=== PATIENT | female | born 1990 | race Caucasian/White ===

== ENCOUNTER 2020-04-08 17:14 | Emergency (ER) | payer OTHER, SELFPAY ==
[2020-04-08 17:41] VITALS: BP 139/74; PULSE 99; RESP 16; TEMP 37.1; O2SAT 100; BMI 36.3
[2020-04-08 18:09] LABS: Glucose Urine UA NEG (NEG); Leukocyte Esterase Urine NEG (NEG); Nitrite Urine NEG (NEG); Urine Blood NEG (NEG); Urine Ketones NEG (NEG); Urine Protein NEG (NEG-TRACE)
[2020-04-08 18:10] LABS: Appearance Urine CLEAR; Color Urine YELLOW
--- NOTE | 2020-04-08 18:12 | ED.BACK ---
HPI - Back Pain/Injury General Chief Complaint: Back Pain/Injury Stated Complaint: Back pain Time Seen by Provider: 04/08/20 18:12 History of Present Illness HPI Narrative: Patient complains of right-sided low back pain with no radiation worse after exercising 2 days ago Yesterday patient thought her urine looked cloudy but there is no burning with urination no frequency no discomfort no fever no vomiting Back pain is worse with movement, no numbness no weakness no paresthesias no radiation of pain no fever Related Data Previous Rx's Medication Instructions Recorded ibuprofen 600 mg PO Q6H PRN #20 tab 04/08/20 Allergies Allergy/AdvReac Type Severity Reaction Status Date / Time No Known Allergies Allergy Verified 04/08/20 17:46 Review of Systems Review of Systems: Positive for back pain negatives are no headache no neck pain no numbness no weakness no tingling no incontinence no radiation of pain no chest pain no abdominal pain Yes all other systems are reviewed and are negative PMFSH Past Medical History Source: nursing notes reviewed Medical History (Updated 04/09/20 @ 00:01 by Lidia Gracia) delivery delivered Cholecystectomy planned Surgical History (Updated 04/08/20 @ 17:53 by Caryn Del Toro) Tubal ligation status Social History Social History Advance Directives: No Advance Directives Information Provided: Yes Physical Exam Vital Signs: Vital Signs: Last Vital Signs Temp 98.7 F 04/08/20 17:41 Pulse 99 04/08/20 17:41 Resp 16 04/08/20 17:41 BP 139/74 04/08/20 17:41 Pulse Ox 100 04/08/20 17:41 Body Mass Index 36.3 General appearance is no acute distress cooperative, a and O x3 The head is normocephalic atraumatic The neck is supple and nontender The chest is clear to auscultation bilaterally no respiratory distress Abdomen is soft nontender The back had lower lumbar paraspinal tenderness soft tissue tenderness no focal bony tenderness, no CVA tenderness, pain was easily reproduced with movement and relieved with standing in a comfortable position The skin of the back was normal no rash no wound no redness Extremities is full range of motion x4 B neuro is motor is 5/5 x4 gait is normal can stand on toes can walk on heels, sensation was intact and symmetrical in feet Course Course Course Narrative: UA did not show any signs of urinary tract infection, exam and history are consistent with musculoskeletal back pain MDM - Back Pain/Injury Lab Data Attestation: I reviewed the patient's lab results. Labs: Lab Results 04/08/20 04/08/20 Range/Units 17:55 17:57 Urine Color YELLOW Urine Appearance CLEAR Urine pH 6.0 (5.0-8.0) Ur Specific [place] 1.020 (1.005-1.025) Urine Protein NEG (NEG-TRACE) MG/DL Urine Glucose (UA) NEG (NEG) MG/DL Urine Ketones NEG (NEG) MG/DL Urine Blood NEG (NEG) Urine Nitrite NEG (NEG) Ur Leukocyte Esterase NEG (NEG) Urine RBC 0 (0) /HPF Urine WBC 0-2 (0-4) /HPF Ur Squamous Epith Cells TRACE /LPF Urine Bacteria TRACE /LPF Urine Test NEGATIVE (NEGATIVE) Discharge Plan Discharge Clinical Impression: Strain of lumbar region Patient Disposition: Home, Self-Care Additional Instructions: Testing did not show any sign of urine infection and as you have no symptoms of urine infection no treatment is needed Exam is consistent with a strained muscle in her back which usually will get better on its own Chiropractor and physical therapy are often helpful so follow with primary care doctor for referrals if needed Tylenol and or Motrin are helpful if needed for pain Return any concerns Prescriptions: New ibuprofen 600 mg tablet 600 mg PO Q6H PRN (Reason: pain) Qty: 20 RF: 0 Interventions: ED Discharge Assessment Last Done: 04/08/20 19:05 Discharge Date/Time: 04/08/20 19:07
[2020-04-08 18:16] LABS: Bacteria Urine TRACE /LPF; RBC Urine 0 /HPF (0); Squamous Epithelial Cell Urine TRACE /LPF; WBC Urine 0-2 /HPF (0-4)
[2020-04-08 18:39] LABS: UPreg QC Valid YES; Urine Pregnancy NEGATIVE (NEGATIVE)
== END 2020-04-08 19:07 | disposition home or self-care (01) ==
PROVIDERS: Emergency Provider Internal Medicine; PCP Nurse Practitioner
DX: S39.012A Strain of muscle, fascia and tendon of lower back, initial encounter (principal); Y93.B9 Activity, other involving muscle strengthening exercises; Y92.9 Unspecified place or not applicable; Y99.9 Unspecified external cause status; X58.XXXA Exposure to other specified factors, initial encounter; Y93.9 Activity, unspecified; Z79.899 Other long term (current) drug therapy
CPT/HCPCS: 81001; 81025; 99283

== ENCOUNTER → 2020-08-30 09:56 | Outpatient (BNVA) | payer OTHER, SELFPAY | PROVIDERS: PCP Nurse Practitioner; Visit Provider Physician Assistant | DX: E66.9 Obesity, unspecified (principal); G47.10 Hypersomnia, unspecified; M25.561 Pain in right knee; Z68.37 Body mass index [BMI] 37.0-37.9, adult; Z98.51 Tubal ligation status; Z90.49 Acquired absence of other specified parts of digestive tract | CPT/HCPCS: 99202 ==

== ENCOUNTER → 2020-10-16 11:19 | Outpatient (REF) | payer OTHER, SELFPAY | LOC: HO.SL 11:19 | PROVIDERS: PCP Internal Medicine; Visit Provider Physician Assistant | DX: G47.10 Hypersomnia, unspecified (principal); G47.19 Other hypersomnia; E66.9 Obesity, unspecified; Z68.37 Body mass index [BMI] 37.0-37.9, adult | CPT/HCPCS: 95806 ==

== ENCOUNTER → 2020-10-19 10:35 | Outpatient (BNVA) | payer OTHER, SELFPAY | PROVIDERS: PCP Nurse Practitioner; Visit Provider Physician Assistant | DX: E66.9 Obesity, unspecified (principal); G47.10 Hypersomnia, unspecified; G47.9 Sleep disorder, unspecified; Z68.37 Body mass index [BMI] 37.0-37.9, adult | CPT/HCPCS: 99212 ==

== ENCOUNTER → 2020-11-28 10:02 | Outpatient (BNVA) | payer OTHER, SELFPAY | PROVIDERS: PCP Nurse Practitioner; Visit Provider Physician Assistant | DX: E66.9 Obesity, unspecified (principal); Z68.36 Body mass index [BMI] 36.0-36.9, adult | CPT/HCPCS: 99212 ==

== ENCOUNTER 2024-06-10 14:34 | Outpatient (REF) | payer OTHER, SELFPAY ==
--- OUTSIDE RECORDS SUMMARY | 2024-06-10 16:07 | XMS_ITS ---
Author Name [facility] Organization Unknown Encounters Encounter Type Encounter Reason Primary Diagnosis Location Date Ambulatory [facility] [place] 02/02/2024
--- OUTSIDE RECORDS SUMMARY | 2024-06-10 16:07 | XMS_ITS | Clinical Summary ---
Author Organization 175 [facility] Address [address] [place] [address] Phone Care Team Providers Care Evp Managing Director Name Role Phone Brenda Multani MD Primary Care Pr ovider Allergies No known active allergies Medications docusate sodium (COLACE) 100 mg capsule Take 1 capsule (100 mg total) by mouth 2 (two) times a day. 09/17/19 23 Active fluticasone propionate (FLONASE) 50 mcg/actuation nasal spray 2 Sprays by Nasal route 2 times daily as needed for Rhinitis. 01/07/20 22 Active polyethylene glycol (MIRALAX) 17 gram packet Take 1 Packet by mouth daily. 09/17/19 23 Active senna (SENOKOT) 8.6 mg tablet Take 1 tablet (8.6 mg total) by mouth 1 (one) time each day. 08/25/19 24 Active albuterol HFA (PROVENTIL HFA;VENTOLIN HFA) 108 (90 Base) MCG/ACT inhaler Inhale 2 puffs by mouth every 4 (four) hours if needed for wheezing or shortness of breath. Active benzonatate (TESSALON) 100 mg capsule Do not crush or chew. Active polyethylene glycol (PEG) 17 gram/dose oral powder 1 (one) time each day. polyethylene glycol (GLYCOLAX) 17 GM/SCOOP powder Active famotidine (PEPCID) 20 mg tablet Active acetaminophen (TYLENOL) 500 mg tablet Take 1 tablet (500 mg total) by mouth every 8 (eight) hours. Active vitamin E, dl,tocopheryl acet, (vitamin E, dl, acetate,) 180 mg (400 unit) capsule Take 1 capsule (400 Units total) by mouth 1 (one) time each day. Active gabapentin (NEURONTIN) 300 mg capsuleIndications :Numbness and tingling of right arm Take 1 capsule (300 mg total) by mouth at bedtime. 30 each 02/26/20 24 Active norethindrone-ethi nyl estradiol (ORTHO-NOVUM 1-35 TAB,NORTREL 1-35 TAB) 1-35 mg-mcg per tabletIndications: Encounter for repeat prescription of oral contraceptives Take 1 tablet by mouth 1 (one) time each day. 84 tablet 2 03/07/20 24 025 Active tiZANidine (ZANAFLEX) 4 mg tablet Take 1 tablet (4 mg total) by mouth at bedtime as needed for muscle spasms. 90 tablet 04/28/19 25 Active ibuprofen (ADVIL,MOTRIN) 800 mg tablet Take 1 tablet (800 mg total) by mouth every 8 (eight) hours if needed (pain). 90 tablet 05/05/19 25 Active tirzepatide, weight loss, (Zepbound) 5 mg/0.5 mL injection Inject 0.5 mL (5 mg total) under the skin every 7 (seven) days for 28 days. 2 mL 05/10/19 25 025 Active Problems Problem Noted Date Diagnosed Date Sickle cell trait 12/16/2023 Numbness and tingling of right arm 12/16/2023 Assessment & Plan (04/01/2024 1:34 PM EST): 34-year-old woman with numbness tingling and pain down her right upper extremity greater than her left upper extremity as well as some weakness. She does have some of the history and clinical exam findings consistent with thoracic outlet syndrome but is not totally convincing at this point. I went over her imaging with her as described in the HPI. We also talked about thoracic outlet syndrome and what that actually means depending on what is compressed (nerve, artery, or vein). We did talk about the treatment options for thoracic outlet syndrome but I think starting with physical therapy geared towards thoracic outlet is the best place to start at this point. Will plan on referring her for 2 months of physical therapy and follow-up with me after that. All questions were answered. Menorrhagia with regular cycle 09/18/2023 Overview (12/16/2023): Last Assessment & Plan: I counseled Melina that ablation is not recommended as first line for menorrhagia and usually is not thought to be a treatment for dysmenorrhea. Therefore, if she is having relief with the OCP and is not having ongoing SE after the first few months, it would be a good idea to continue. She agreed. We will have a short term follow up to ensure initial SE have resolved. She agreed. Cubital tunnel syndrome on right 01/26/2023 TMJ syndrome 11/26/2022 Fatty liver 05/06/[address] scan, small bowel 12/31/2020 Overview (12/16/2023): CAT scan dated 10/12/20 reported - Apparent wall thickening involving a 10 cm segment of the jejunum. Small bowel series dated 12/28/2020 was normal reporting there is no focal mass lesion, stricture, or mucosal irregularity. No findings of bowel wall thickening. 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/2019 Abnormal brain MRI 04/30/2018 Overview (12/16/2023): nonspecific foci of FLAIR/T2 hyperintense white matter signal abnormality, measuring up to 2.5 mm within the subcortical right frontal lobe; referred to neurology Cholelithiasis 08/24/2017 Class 1 obesity without seri ous comorbidity with body mass index (BMI) of 34.0 to 34.9 in adult 06/11/2017 Acanthosis nigricans 04/23/2012 Constipation 07/12/2010 Encounters Date Type Department Care Team Description 05/19/2024 9:42 AM EDT - 05/19/2024 11:59 PM EDT Hospital Encounter Radiology Department - [address] [phone] Breast pain, right Discharge Disposition: Home or Self Care 05/19/2024 9:42 AM EDT - 05/19/2024 11:59 PM EDT Hospital Encounter Radiology Department - [address] [phone] Breast pain, right Discharge Disposition: Home or Self Care 05/13/2024 11:53 AM EST - 05/13/2024 11:59 PM EST Hospital Encounter Radiology Department [address] [phone] Chronic nonintractable headache, unspecified headache type; Right arm weakness Discharge Disposition: Home or Self Care 05/06/2024 10:45 AM EST Office Visit Adult Medicine [address] [phone] Arabella Mckeon PA Right arm weakness (Primary Dx); Chronic nonintractable headache, unspecified headache type; Abnormal brain MRI; Breast pain, right 04/01/2024 11:00 AM EST Consult Thoracic Surgery - [address] [phone] Kim Rowan MD Numbness and tingling of right arm (Primary Dx) 03/30/2024 11:30 AM EST Office Visit Adult [address] [phone] Arabella Mckeon PA Skin lesion of face (Primary Dx); Skin lesion of left leg; Numbness and tingling of right arm; RUE weakness 03/30/2024 Telephone Adult Medicine [address] [phone] Brenda Multani MD Forms/questionnaires from Last 3 Months Immunizations Name Administration Dates Next Due HPV 9-valent (Gardisil) 9yo to less than 46yo 01/27/2020,03/27/2016 HPV, Quadrivalent 04/23/2012 Influenza Quadravalent, MDCK , 0.5ml, preservative free (Flucelvax) 6mo and older 01/06/2022,03/29/2021 Influenza trivalent, with preservative (Fluzone; Afluria) 6mo and older 03/27/2014 Influenza, Unspecified 04/09/2019 PPD Test 07/07/2017, 6,04/05/2014,2012 Pfizer SARS-CoV-2 COVID-19, mRNA, LNP-S, preservative free 04/26/2020,04/05/2020 Tdap Tetanus diptheria acell ular pertussis (Boostrix; Adacel) 7yo and older 11/27/2016,04/23/2012 Surgical History Surgery Date Site/Laterality Comments SECTION 2009 and 2016 PROCEDURE: HISTORICAL FLEXIBLE SIGMOIDOSCOPY 02/18/2016 PROCEDURE: HISTORICAL FLEXIBLE SIGMOIDOSCOPY; COMMENT: Normal to 25 cm. WISDOM TOOTH EXTRACTION PROCEDURE: HISTORICAL WISDOM TEETH EXTRACTION CHOLECYSTECTOMY 09/2017 PROCEDURE: HISTORICAL CHOLECYSTECTOMY OTHER SURGICAL HISTORY PROCEDURE: [place] LAPAROSCOPY SALPINGOSTOMY OTHER SURGICAL HISTORY 12/28/2020 PROCEDURE: CHG RADIOLOGIC EXAM SMALL INT SINGLE CONTRAST STUDY; COMMENT: Normal small bowel series. Medical History Medical History Date Comments Sickle cell trait (CMS/HCC) DX:S ickle cell trait (HCC) Constipation DX:Constipation; COMMENT: 05/2016 pt states its resolved Migraine DX:Migraine; COM MENT: without aura Esophageal reflux DX:Esophageal reflux Constipation DX:Constipation Fatty liver DX:Fatty liver Irritable bowel syndrome DX:Irri table bowel syndrome Functional dyspepsia DX:Function al dyspepsia Family History Medical History Relation Name Comments Asthma Brother in childhood Nephrolithiasis Father Diabetes Maternal Grandmother Heart attack Maternal Grandmother Hypertension Maternal Grandmother Heart failure Mother Seizures Mother Breast cancer Mother's side great aunt unilateral Colon cancer Neg Hx Ovarian cancer Neg Hx Uterine cancer Neg Hx Relation Name Status Comments Brother Alive asthma Daughter Alive Father Alive sz, allergies Maternal Grandfather unknown Alive Maternal Grandmother Alive Mother Alive Mother's side great aunt Alive Paternal Grandfather unknwown Paternal Grandmother Alive Sister Alive Son Alive Social History Tobacco Use Types Packs/Day Years Used Date Smoking Tobacco: Never Smokeless Tobacco: Never Tobacco Cessation:Counseling Given: Not Answered Alcohol Use Standard Drinks/Week Comments No 0 (1 standard drink = 0.6 oz pur e alcohol) Comments No Sex and Gender Information Value Date Recorded Sex Assigned at Female 05/04/2024 12:19 PM EST Legal Sex Female 2:31 PM EST Gender Identity Female 05/04/2024 12:19 PM EST Sexual Orientation Straight 05/04/2024 12 :19 PM EST Obstetrics History Para Term AB IAB SAB Ectopic Multiple Livin g Live Births 2 2 2 2 Date Outcome GA Total Labor Labor/2nd/3rd Weight Sex Type Anes PTL Sari A1 A5 Name Clin Term Term Last Filed Vital Signs Vital Sign Reading Time Taken Comments Blood Pressure 125/77 05/06/2024 10:54 AM EST Pulse 86 05/06/2024 10:54 AM EST Temperature 36.4 ??C (97.5 ??F) 05/06/2024 10:[address] Respiratory Rate 14 05/06/2024 10:54 AM EST Oxygen Saturation 99% 05/06/2024 10:54 AM EST Inhaled Oxygen Concentration - - Weight 76.7 kg (169 lb) 05/13/2024 12:02 PM EST Height 149.9 cm (4' 11 ) 05/06/2024 10:54 AM EST Body Mass Index 34.13 05/06/2024 10:54 AM EST Plan of Treatment Upcoming Encounters Date Type Department Care Team (Late st Contact Info) Description 06/17/2024 12:30 PM EDT Evaluation [facility] [address] [phone] Abner Silva, PT 07/12/2024 2:00 PM EDT Office Visit Bariatric Surgery [facility] [address] [phone] Melina Holt PA [address] [phone] 07/27/2024 9:45 AM EDT Office Visit Obstetrics and Gynecology - [address] [phone] Caro Delaney, DESHAWN [address] [place] [address] 08/09/2024 11:00 AM EDT Consult [facility] [address] [phone] Zhang Agarwal MD 175 [facility] [address] [place] [address] 09/06/2024 10:30 AM EDT Office Visit Adult Medicine [address] [phone] Arabella Mckeon PA [address] [place] [address] 11/21/2024 1:00 PM EDT Appointment Radiology Department - [address] [phone] Health Maintenance Due Date Last Done Comments Hepatitis B Vaccines (2 of 3 - 3-dose series) 1992 1992 Hepatitis A Vaccines (1 of 2 - Risk 2-dose series) 2011 Pneumococcal Vaccine: Pediatrics (0 to 5 Years) and At-Risk Patients (6 to 64 Years) (1 of 2 - PCV) 2011 Depression Screening 02/15/2022 Social Influencers of Health Screening 02/15/2022 Cervical Cancer Screening: Pap Smear 08/25/2022 08/26/2019, 08/26/2019 COVID-19 Vaccine ( season) 2023 04/26/2021, 04/26/2020, 04/05/2020 DTaP,Tdap,and Td Vaccines (3 - Td or Tdap) 11/27/2026 11/27/2016, 04/23/2012 Cholesterol Screening (Lipid Panel) 11/27/2027 11/26/2022 MMR Vaccines Completed 1993 HIV Screening Completed 09/14/2019 Hepatitis C Screening Completed 09/14/2019 HPV Vaccines Completed 01/27/2020, 03/09, 04/23/2012 Influenza Vaccine Completed 11/10/2023, , 03/29/2021, Additional history exists HIB Vaccines Aged Out No longer eligi ble based on patient's age to complete this topic IPV Vaccines Aged Out No longer eligi ble based on patient's age to complete this topic Meningococcal ACWY Vaccine Aged Out N o longer eligible based on patient's age to complete this topic Meningococcal B Vacine Aged Out No lo nger eligible based on patient's age to complete this topic RSV Immunization Patients Under 20 months Aged Out No longer eligible based on patient's age to complete this topic Varicella Vaccines Aged Out No longer eligible based on patient's age to complete this topic Goals Goal Patient Goal Type Associated Problems Recent Progress Patient-Stated? Author Pts goal General On track(02/09/20 3:53 PM EST) Yes Rock Gruber, OT Note: To be able to use R UE without pain STG 4-6 visits General On track(02/09/20 3:53 PM EST) No Rock Gruber, OT Note: Pt will report pain in R UE with activity <= 5/10 Met Pt will perform initial HEP MOD I - Met Pt will demo R UE AROM improved by 5-10* to be able to reach the soap in the shower - Met Pt will demo R UE strength by 1/2 muscle grade -Not Met Pt will demo improved R UE fx'l use as evidenced by QD score <=51 - Not Met LTG 16 visits General On track(02/09/20 3:53 PM EST) No Rock Gruber, OT Note: Pt will report pain in R UE with activity <= 3/10 Pt will demo R UE AROM to perform light IADLs with R UE Pt will demo R UE strength WFL for light IADls Pt will demo improved fx'l use R UE as evidenced by QD score <= 35 Procedures Procedure Name Priority Date/Time Associated Diagnosis Comments US BREAST LIMITED RIGHT Routine 05/19/2024 10:57 AM EDT Breast pain, right MG MAMMO DIGITAL DIAGNOSTIC W GEOFFREY BILAT Routine 05/19/2024 10:31 AM EDT Breast pain, right MR BRAIN WO AND W CONTRAST Routine 05/13/2024 12:53 PM EST Chronic nonintractable headache, unspecified headache type Right arm weakness LIPID PANEL Routine 11/26/2022 HEPATITIS C SCREENING Routine 09/14/2019 HIV SCREENING Routine 09/14/2019 PAP SMEAR Routine 08/26/2019 from Last 3 Months or Most Recently Relevant to Health Maintenance Results * US Breast Limited Right (05/19/2024 10:57 AM EDT) Anatomical Region Laterality Modality Breast Right Ultrasound 05/19/2024 10:3 2 AM EDT Impressions 05/19/2024 11:11 AM EDT 1. Right: No mammographic or sonographic evidence of malignancy to correspond to area of clinical pain. 2. Right: Upper inner posterior depth focal asymmetry is probably benign without sonographic correlate 3. Left: No mammographic evidence of malignancy 4. Scattered fibroglandular tissue ?? Findings and recommendations were conveyed to the patient. ? BI-RADS CATEGORY: 3 - PROBABLY BENIGN RECOMMENDATION: Short Interval Follow-up is recommended for the right breast in 6 months. Short Interval Follow-up is recommended for the right breast in 6 months. ??Right breast CC and MLO spot compression in 6 months Mammo Location: [facility], [address] [place] [address], [phone], . -------- FINAL REPORT -------- Dictated By: Kurt Levin Dictated Date: 05/19/2024 10:32 ET Assigned Physician: Kurt Levin Reviewed and Electronically Signed By: Kurt Levin Signed Date: 05/19/2024 11:11 ET Workstation ID: [id number] Transcribed By: Self Edit Transcribed Date: 05/19/2024 10:45 ET Narrative 05/19/2024 11:11 AM EDT BILATERALDIGITAL DIAGNOSTIC 3D MAMMOGRAPHY HISTORY: Workup for right-sided breast pain. ??Additionally, workup for right upper inner posterior depth and left lateral breast posterior depth focal asymmetries seen mammographically. ??Patient is a 34-year-old female COMPARISON: Baseline Technique: Bilateral CC and MLO full field views FINDINGS: Right: Right breast upper inner posterior depth focal asymmetry persists on spot compression and is probably benign. ??No focal sonographic correlate. Right breast periareolar area of clinical concern does not demonstrate abnormal mammographic or sonographic findings. Left: Lateral breast posterior depth focal asymmetry decreases on spot compression and is consistent with typically benign parenchymal tissue. BREAST DENSITY: B - There are scattered areas of fibroglandular density. EXAM: RIGHT BREAST TARGETED ULTRASOUND EVALUATION HISTORY: ??Workup for upper inner posterior depth focal asymmetry and periareolar pain TECHNIQUE: Ultrasonographic examination is performed using a ??linear array transducer. Targeted right breast ultrasound from 12:00 to 3:00 to evaluate for area of mammographic concern and 11:00 in area of clinical pain. Real-time sonographic scanning was also performed by the radiologist FINDINGS: From 12:00 to 3:00, no sonographic evidence of malignancy or other focal abnormalities were identified at the right breast in area of mammographic concern At 11:00, no sonographic evidence of malignancy or other focal abnormality to correspond to area of clinical pain. Procedure Note Kurt Levin MD - 05/19/2024 BILATERALDIGITAL DIAGNOSTIC 3D MAMMOGRAPHY HISTORY: Workup for right-sided breast pain. Additionally, workup forright upper inner posterior depth and left lateral breast posterior depthfocal asymmetries seen mammographically. Patient is a [id number] COMPARISON: Baseline Technique: Bilateral CC and MLO full field views FINDINGS: Right: Right breast upper inner posterior depth focal asymmetry persists on spotcompression and is probably benign. No focal sonographic correlate. Right breast periareolar area of clinical concern does not demonstrateabnormal mammographic or sonographic findings. Left: Lateral breast posterior depth focal asymmetry decreases on spotcompression and is consistent with typically benign parenchymal tissue. BREAST DENSITY: B - There are scattered areas of fibroglandular density. EXAM: RIGHT BREAST TARGETED ULTRASOUND EVALUATION HISTORY: Workup for upper inner posterior depth focal asymmetry andperiareolar pain TECHNIQUE: Ultrasonographic examination is performed using a linear arraytransducer. Targeted right breast ultrasound from 12:00 to 3:00 toevaluate for area of mammographic concern and 11:00 in area of clinicalpain. Real-time sonographic scanning was also performed by theradiologist FINDINGS: From 12:00 to 3:00, no sonographic evidence of malignancy or other focalabnormalities were identified at the right breast in area of mammographicconcern At 11:00, no sonographic evidence of malignancy or other focal abnormalityto correspond to area of clinical pain. IMPRESSION: 1. Right: No mammographic or sonographic evidence of malignancy tocorrespond to area of clinical pain. 2. Right: Upper inner posterior depth focal asymmetry is probably benignwithout sonographic correlate 3. Left: No mammographic evidence of malignancy 4. Scattered fibroglandular tissue Findings and recommendations were conveyed to the patient. BI-RADS CATEGORY: 3 - PROBABLY BENIGN RECOMMENDATION: Short Interval Follow-up is recommended for the right breast in 6 months.Short Interval Follow-up is recommended for the right breast in 6 months.Right breast CC and MLO spot compression in 6 months Mammo Location: [facility], [address] [place] [address], [id number], . -------- FINAL REPORT -------- Dictated By: Kurt Levin Dictated Date: 05/19/2024 10:32 ET Assigned Physician: Kurt Levin Reviewed and Electronically Signed By: Kurt Levin Signed Date: 05/19/2024 11:11 ET Workstation ID: [id number] Transcribed By: Self Edit Transcribed Date: 05/19/2024 10:45 ET us Arabella DUNHAM IMG US PROCEDURES Final Resul t * MG Mammo Digital Diagnostic w Geoffrey bilat (05/19/2024 10:31 AM EDT) Anatomical Region Laterality Modality Breast Bilateral Mammography 05/19/2024 10:3 2 AM EDT Impressions 05/19/2024 11:11 AM EDT 1. Right: No mammographic or sonographic evidence of malignancy to correspond to area of clinical pain. 2. Right: Upper inner posterior depth focal asymmetry is probably benign without sonographic correlate 3. Left: No mammographic evidence of malignancy 4. Scattered fibroglandular tissue ?? Findings and recommendations were conveyed to the patient. ? BI-RADS CATEGORY: 3 - PROBABLY BENIGN RECOMMENDATION: Short Interval Follow-up is recommended for the right breast in 6 months. Short Interval Follow-up is recommended for the right breast in 6 months. ??Right breast CC and MLO spot compression in 6 months Mammo Location: [facility], [address] [place] [address], [address], . -------- FINAL REPORT -------- Dictated By: Kurt Levin Dictated Date: 05/19/2024 10:32 ET Assigned Physician: Kurt Levin Reviewed and Electronically Signed By: Kurt Levin Signed Date: 05/19/2024 11:11 ET Workstation ID: [id number] Transcribed By: Self Edit Transcribed Date: 05/19/2024 10:45 ET Narrative 05/19/2024 11:11 AM EDT BILATERALDIGITAL DIAGNOSTIC 3D MAMMOGRAPHY HISTORY: Workup for right-sided breast pain. ??Additionally, workup for right upper inner posterior depth and left lateral breast posterior depth focal asymmetries seen mammographically. ??Patient is a 34-year-old female COMPARISON: Baseline Technique: Bilateral CC and MLO full field views FINDINGS: Right: Right breast upper inner posterior depth focal asymmetry persists on spot compression and is probably benign. ??No focal sonographic correlate. Right breast periareolar area of clinical concern does not demonstrate abnormal mammographic or sonographic findings. Left: Lateral breast posterior depth focal asymmetry decreases on spot compression and is consistent with typically benign parenchymal tissue. BREAST DENSITY: B - There are scattered areas of fibroglandular density. EXAM: RIGHT BREAST TARGETED ULTRASOUND EVALUATION HISTORY: ??Workup for upper inner posterior depth focal asymmetry and periareolar pain TECHNIQUE: Ultrasonographic examination is performed using a ??linear array transducer. Targeted right breast ultrasound from 12:00 to 3:00 to evaluate for area of mammographic concern and 11:00 in area of clinical pain. Real-time sonographic scanning was also performed by the radiologist FINDINGS: From 12:00 to 3:00, no sonographic evidence of malignancy or other focal abnormalities were identified at the right breast in area of mammographic concern At 11:00, no sonographic evidence of malignancy or other focal abnormality to correspond to area of clinical pain. Procedure Note Kurt Levin MD - 05/19/2024 BILATERALDIGITAL DIAGNOSTIC 3D MAMMOGRAPHY HISTORY: Workup for right-sided breast pain. Additionally, workup forright upper inner posterior depth and left lateral breast posterior depthfocal asymmetries seen mammographically. Patient is a [id number] COMPARISON: Baseline Technique: Bilateral CC and MLO full field views FINDINGS: Right: Right breast upper inner posterior depth focal asymmetry persists on spotcompression and is probably benign. No focal sonographic correlate. Right breast periareolar area of clinical concern does not demonstrateabnormal mammographic or sonographic findings. Left: Lateral breast posterior depth focal asymmetry decreases on spotcompression and is consistent with typically benign parenchymal tissue. BREAST DENSITY: B - There are scattered areas of fibroglandular density. EXAM: RIGHT BREAST TARGETED ULTRASOUND EVALUATION HISTORY: Workup for upper inner posterior depth focal asymmetry andperiareolar pain TECHNIQUE: Ultrasonographic examination is performed using a linear arraytransducer. Targeted right breast ultrasound from 12:00 to 3:00 toevaluate for area of mammographic concern and 11:00 in area of clinicalpain. Real-time sonographic scanning was also performed by theradiologist FINDINGS: From 12:00 to 3:00, no sonographic evidence of malignancy or other focalabnormalities were identified at the right breast in area of mammographicconcern At 11:00, no sonographic evidence of malignancy or other focal abnormalityto correspond to area of clinical pain. IMPRESSION: 1. Right: No mammographic or sonographic evidence of malignancy tocorrespond to area of clinical pain. 2. Right: Upper inner posterior depth focal asymmetry is probably benignwithout sonographic correlate 3. Left: No mammographic evidence of malignancy 4. Scattered fibroglandular tissue Findings and recommendations were conveyed to the patient. BI-RADS CATEGORY: 3 - PROBABLY BENIGN RECOMMENDATION: Short Interval Follow-up is recommended for the right breast in 6 months.Short Interval Follow-up is recommended for the right breast in 6 months.Right breast CC and MLO spot compression in 6 months Mammo Location: [facility], [address] [place] [address], [phone], . -------- FINAL REPORT -------- Dictated By: Kurt Levin Dictated Date: 05/19/2024 10:32 ET Assigned Physician: Kurt Levin Reviewed and Electronically Signed By: Kurt Levin Signed Date: 05/19/2024 11:11 ET Workstation ID: [id number] Transcribed By: Self Edit Transcribed Date: 05/19/2024 10:45 ET us Arabella DUNHAM IMG BI PROCEDURES Final Resul t * MR Brain wo and w Contrast (05/13/2024 12:53 PM EST) Anatomical Region Laterality Modality Head and Neck Magnetic Resonan ce 05/13/2024 12:5 9 PM EST Impressions 05/13/2024 1:25 PM EST 1. ??No acute intracranial findings. ??No abnormal parenchymal enhancement. 2. ??Nonspecific few white matter lesions. ??Differential considerations are the same as stated in 2019, which includes headache related white matter changes. -------- FINAL REPORT -------- Dictated By: Clay Black Dictated Date: 05/13/2024 12:59 ET Assigned Physician: Clay Black Reviewed and Electronically Signed By: Clay Black Signed Date: 05/13/2024 13:25 ET Workstation ID: [id number] Transcribed By: Self Edit Transcribed Date: 05/13/2024 13:25 ET Narrative 05/13/2024 1:25 PM EST MR BRAIN WO AND W CONTRAST TECHNIQUE: Multisequence MRI of the brain was performed prior to and following intravenous administration of contrast gadolinium Dotarem (15 cc). COMPARISON: Brain MRI on April 29, 2018. HISTORY: chronic headaches, numbness/tingling upper extremities, brain fog FINDINGS: Artifacts degrades many sequences. Brain Parenchyma: No shift of midline structures. ??No evidence of acute infarct, parenchymal hemorrhage or mass effect. ??A few small T2/FLAIR hyperintense white matter lesions are seen, including the largest one in the right frontal lobe, which is unchanged from 2019 (501:15) and additional smaller in the left frontal lobe (501:16). ??No abnormal parenchymal enhancement following administration of intravenous contrast. ??Minimally low-lying cerebellar tonsils with rounded borders do not meet criteria for Chiari malformation. ??Flattened appearance of the pituitary gland is unchanged from 2019. Ventricular System and Extra-Axial Spaces: No hydrocephalus. ??No extra-axial fluid collection. Extracranial Structures: Arterial flow voids in the skull base are present. Paranasal sinuses and mastoid air cells are clear. Procedure Note Clay Black MD - 05/13/2024 MR BRAIN WO AND W CONTRAST TECHNIQUE: Multisequence MRI of the brain was performed prior to andfollowing intravenous administration of contrast gadolinium Dotarem (15cc). COMPARISON: Brain MRI on April 29, 2018. HISTORY: chronic headaches, numbness/tingling upper extremities, brain fog FINDINGS: Artifacts degrades many sequences. Brain Parenchyma: No shift of midline structures. No evidence of acuteinfarct, parenchymal hemorrhage or mass effect. A few small T2/FLAIRhyperintense white matter lesions are seen, including the largest one inthe right frontal lobe, which is unchanged from 2019 (501:15) andadditional smaller in the left frontal lobe (501:16). No abnormalparenchymal enhancement following administration of intravenous contrast.Minimally low-lying cerebellar tonsils with rounded borders do not meetcriteria for Chiari malformation. Flattened appearance of the pituitarygland is unchanged from 2019. Ventricular System and Extra-Axial Spaces: No hydrocephalus. Noextra-axial fluid collection. Extracranial Structures: Arterial flow voids in the skull base arepresent. Paranasal sinuses and mastoid air cells are clear. IMPRESSION: 1. No acute intracranial findings. No abnormal parenchymalenhancement. 2. Nonspecific few white matter lesions. Differential considerations arethe same as stated in 2019, which includes headache related white matterchanges. -------- FINAL REPORT -------- Dictated By: Clay Black Dictated Date: 05/13/2024 12:59 ET Assigned Physician: Clay Black Reviewed and Electronically Signed By: Clay Black Signed Date: 05/13/2024 13:25 ET Workstation ID: [id number] Transcribed By: Self Edit Transcribed Date: 05/13/2024 13:[address] [facility] Arabella DUNHAM IMG MRI PROCEDURES Final Resu lt * (ABNORMAL) Lipid panel (11/26/2022) LDL/HDL Ratio 3 0 - 4 Triglycerides 93 0 - 150 mg/dL Cholesterol 195 0 - 200 mg/dL HDL 60 >=40 mg/dL LDL Cholesterol 117(A) 0 - 100 mg/dL Blood Venous blood specimen / Unknown Result [facility] Historical Provider MD LAB BLOOD ORDERABLES Kathryn l Result * HIV Screening (09/14/2019) Pathologist [facility] HIV Screening abstracted [facility] Provider HEALTH MAINTENANCE Final Result * Hepatitis C Screening (09/14/2019) Pathologist [facility] Hepatitis C Screening abstracted Historical Provider MD HEALTH MAINTENANCE Final Result * Pap smear (08/26/2019) 08/26/2019 Narrative HISTORICAL TESTING LAB RESULTING AGENCY - 09/06/2019 12:26 PM EDT [id number] THINPREP PAP, IMAGED: LOW-GRADE SQUAMOUS INTRAEPITHELIAL LESION (LSIL) . SCANT SQUAMOUS CELLULARITY. YESSENIA RAMIREZ , THIEN(ASCP) (CASE SCREENED 08 30 2019) ABNER VERDUGO M.D. , PATHOLOGIST (CASE ELECTRONICALLY SIGNED 09 02 2019) ADEQUACY: SATISFACTORY ENDOCERVICAL/TRANSFORMATION ZONE COMPONENT PRESENT. SOURCE: THINPREP PAP HPV IF ASCUS, CERVICAL, IMAGED CLINICAL INFORMATION: HPV IF DIAGNOSIS OF ASCUS. PAP HX NEG [Z12.4, Z01.419] Result [facility] Adelita Kraft CNM LAB CYTOLOGY ORDERABLES Final R esult HISTORICAL TESTING LAB RESULTING AGENCY from Last 3 Months or Most Recently Relevant to Health Maintenance Insurance [facility] Care Teams Evp Managing Director Relationship Specialty Start Date End Date Brenda Multani MD [address] [place] [address] [phone] PCP - General Internal Medicine 01/10/24
--- OUTSIDE RECORDS SUMMARY | 2024-06-10 16:07 | XMS_ITS | Encounter Summary ---
Author Organization [facility] Address [address] [place] [address] Care Team Providers Care Waterproofing Supervisor Name Role Phone Brenda Multani MD Primary Care Pr ovider Encounter Details Date Type Department Care Team (Late st Contact Info) Description 12/29/2023 4:46 PM EDT Hospital Encounter TH HISTORIC ENCOUNTERS EASTERN CONVERSION ONLY Sera Holguin MD [address] [facility] [address] [place] [address] Social History Tobacco Use Types Packs/Day Years Used Date Smoking Tobacco: Never Smokeless Tobacco: Never Alcohol Use Standard Drinks/Week Comments No 0 (1 standard drink = 0.6 oz pur e alcohol) Comments No Sex and Gender Information Value Date Recorded Sex Assigned at Female 05/04/2024 12:19 PM EST Legal Sex Female 2:31 PM EST Gender Identity Female 05/04/2024 12:19 PM EST Sexual Orientation Straight 05/04/2024 12 :19 PM EST documented as of this encounter Plan of Treatment Upcoming Encounters Date Type Department Care Team (Late st Contact Info) Description 06/17/2024 12:30 PM EDT Evaluation [facility] [address] [place] [phone] Gregory Silva, PT 07/12/2024 2:00 PM EDT Office Visit Bariatric Surgery - [place] 175 [facility] 120 [place] [phone] Melina Holt PA 175 [facility] 120 [place] [address] 07/27/2024 9:45 AM EDT Office Visit Obstetrics and Gynecology - [place] [address] [place], [place] [phone] Caro Delaney, CN [address] [place], [place] 08/09/2024 11:00 AM EDT Consult [facility] for [place] - [place] 175 [facility] 150 [place] [phone] Zhang Agarwal MD 175 [facility] 150 [place] [phone] 09/06/2024 10:30 AM EDT Office Visit Adult Medicine South - [address] [phone] Arabella Mckeon PA [address] [place] [address] 11/21/2024 1:00 PM EDT Appointment Radiology Department - [address] [phone] documented as of this encounter Goals Goal Patient Goal Type Associated Problems [...] Met LTG 16 visits General On track(02/09/20 24 3:53 PM EST) Rock Jamison, OT Note: Pt will report pain in R UE with activity <= 3/10 Pt will demo R UE AROM to perform light IADLs with R UE Pt will demo R UE strength WFL for light IADls Pt will demo improved fx'l use R UE as evidenced by QD score <= 35 documented as of this encounter Visit Diagnoses Not on filedocumented in this encounter Care Teams Waterproofing Supervisor Relationship Specialty Start Date End Date Brenda Multani MD PCP - General 06/11/22 01/09/24 documented as of this encounter
--- OUTSIDE RECORDS SUMMARY | 2024-06-10 16:07 | XMS_ITS | Clinical Summary ---
Author Organization [facility] Address [address] [place] [address] Care Team Providers Care Extrusion Press Adjuster Name Role Phone Unavailable Primary Care Provider Unavailabl e Social History Tobacco Use Types Packs/Day Years Used Date Smoking Tobacco: Never Assessed Sex and Gender Information Value Date Recorded Sex Assigned at Not on file Gender Identity Not on file Sexual Orientation Not on file Plan of Treatment Health Maintenance Due Date Last Done Comments Hepatitis C Virus Screening 1992 HIV Screening 2005 DTaP/Tdap/Td Vaccines (1 - Tdap) 2011 Hepatitis B Vaccines (1 of 3 - 19+ 3-dose series) 2011 COVID-19 Vaccine (2023-2 5 season) 2023 HPV Vaccines Aged Out No longer eligi ble based on patient's age to complete this topic Pneumococcal Vaccine: Pediat isreal (0-5 Years) and At-Risk Patients (6 to 49 Years) Aged Out No longer eligible b ased on patient's age to complete this topic
== END 2024-06-10 14:35 | disposition home or self-care (01) ==
LOC: HO.HOSX 14:34
PROVIDERS: Visit Provider Physician Assistant
DX: Z13.89 Encounter for screening for other disorder (principal)

== ENCOUNTER → 2024-06-13 10:15 | Outpatient (BNV) | payer OTHER, SELFPAY | PROVIDERS: Visit Provider Radiology Diagnostic Radiology | DX: M25.421 Effusion, right elbow (principal) | CPT/HCPCS: 73080 ==

== ENCOUNTER 2024-06-13 14:28 | Outpatient (REF) | payer OTHER, SELFPAY ==
--- NOTE | ~2024-06-13 | XR_ITS ---
EXAMINATION: XR ELBOW 3 VIEWS RIGHT HISTORY: M25.529 - Pain in unspecified elbow COMPARISON: There are no prior studies available for comparison. FINDINGS: Three views of the right elbow are submitted. Osseous mineralization is normal. No definite fracture or dislocation is seen. The joint spaces are preserved. There is a small joint effusion with mild elevation of the anterior fat pad. XR/XR elbow RT min 3V IMPRESSION: Small joint effusion. No definite fracture is seen. Follow-up films may be helpful to exclude an occult fracture. Electronically signed by: Gregory Cat MD 06/13/2024 03:08 PM EDT
--- OUTSIDE RECORDS SUMMARY | 2024-06-14 17:36 | XMS_ITS | Clinical Summary ---
Author Organization [facility] Address [address] [place] [address] Care Team Providers Care Logistics Account Manager Name Role Phone Unavailable Primary Care Provider [...]
--- OUTSIDE RECORDS SUMMARY | 2024-06-14 17:36 | XMS_ITS | Encounter Summary ---
Author Organization [facility] Address [address] [place] [address] Care Team Providers Care Psychiatric Secretary Name Role Phone Brenda Multani MD Primary Care Pr ovider Encounter Details Date Type Department Care Team (Late st Contact Info) Description 12/29/2023 4:46 PM EDT Hospital Encounter TH HISTORIC ENCOUNTERS EASTERN CONVERSION ONLY Sera Holguin MD [address] [facility] [address] [place] [address] Social History Tobacco Use Types [...] Description 06/17/2024 12:30 PM EDT Evaluation [facility] [address] [place] [phone] Gregory Silva, PT 07/12/2024 2:00 PM EDT Office Visit Bariatric Surgery - [place] 175 [facility] 120 [place] [phone] Melina Holt PA 175 [facility] 120 [place] [address] 07/27/2024 9:45 AM EDT Office Visit Obstetrics and Gynecology - [place] 444 [place], [place] [phone] Caro Delaney, CN [address] [place], [place] 08/09/2024 11:00 AM EDT Consult [facility] for [place] - [place] 175 [facility] 150 [place] [phone] Zhang Agarwal MD 175 [facility] 150 [place] [phone] 09/06/2024 10:30 AM EDT Office Visit Adult Medicine South - [address] [phone] Arabella Mckeon PA [address] [place] [address] 11/21/2024 1:00 PM EDT Appointment Radiology Department - [address] [phone] documented as of this encounter Goals Goal [...] on filedocumented in this encounter Care Teams Psychiatric Secretary Relationship Specialty Start Date End Date Brenda Multani MD PCP - General 06/11/22 01/09/24 documented as of this encounter
--- OUTSIDE RECORDS SUMMARY | 2024-06-14 17:36 | XMS_ITS | Clinical Summary ---
Author Organization 175 [facility] Address 175 [place] [address] Phone Care Team Providers Care Pharmacy Coordinator Name Role Phone Brenda Multani MD Primary [...] 05/05/19 25 Active tirzepatide, weight loss, (Zepbound) 7.5 mg/0.5 mL injectionIndicatio ns:Morbid obesity (CMS/HCC) Inject 0.5 mL (7.5 mg total) under the skin every 7 (seven) days for 28 days. 2 mL 06/15/19 25 025 Active tirzepatide, weight loss, (Zepbound) 5 mg/0.5 [...] PM EDT Hospital Encounter Radiology Department - [address] [phone] Breast pain, right Discharge Disposition: Home or Self Care 05/19/2024 9:42 AM EDT - 05/19/2024 11:59 PM EDT Hospital Encounter Radiology Department - [address] [phone] Breast pain, right Discharge Disposition: Home or Self Care 05/13/2024 11:53 AM EST - 05/13/2024 11:59 PM EST Hospital Encounter Radiology [address] [phone] Chronic nonintractable headache, unspecified headache type; Right arm weakness Discharge Disposition: Home or Self Care 05/06/2024 10:45 AM EST Office Visit Adult Medicine [address] [phone] Arabella Mckeon PA Right arm weakness (Primary Dx); Chronic nonintractable headache, unspecified headache type; Abnormal brain MRI; Breast pain, right 04/01/2024 11:00 AM EST Consult Thoracic Surgery - [address] [phone] Kim Rowan MD Numbness and tingling of right arm (Primary Dx) 03/30/2024 11:30 AM EST Office Visit Adult [address] [phone] Arabella Mckeon PA Skin lesion of face (Primary Dx); Skin lesion of left leg; Numbness and tingling of right arm; RUE weakness 03/30/2024 Telephone Adult [address] [phone] rBenda Multani MD Forms/questionnaires from Last 3 Months [...] PROCEDURE: HISTORICAL CHOLECYSTECTOMY OTHER SURGICAL HISTORY PROCEDURE: MD LAPAROSCOPY SALPINGOSTOMY OTHER SURGICAL HISTORY 12/28/2020 PROCEDURE: [...] 12:30 PM EDT Evaluation [facility] [place] [address] [phone] Abner Silva, PT 07/12/2024 2:00 PM EDT Office Visit Bariatric Surgery - [place] 175 [facility] 120 [place] [phone] Melina Holt PA 175 [facility] 120 [place] [address] 07/27/2024 9:45 AM EDT Office Visit Obstetrics and Gynecology [address], [place] [phone] Caro Delaney, [facility] 444 [place], [place] 08/09/2024 11:00 AM EDT Consult [facility] for [place] - [place] [address] [phone] Zhang Agarwal MD [address] [phone] 09/06/2024 10:30 AM EDT Office Visit Adult Medicine [facility] - [address] [phone] Arabella Mckeon PA [address] [place] [address] 11/21/2024 1:00 PM EDT Appointment Radiology Department - [address] [phone] Health Maintenance Due Date Last Done Comments [...] age to complete this topic Meningococcal B Vaccine Aged Out No l onger eligible based on patient's age to complete this topic RSV Immunization Patients Under 20 months Aged Out No longer eligible based on patient's age to complete this topic Varicella Vaccines Aged Out No longer eligible based on patient's age to complete this topic Goals Goal Patient Goal Type Associated Problems Recent Progress Patient-Stated? Author Pts goal General On track(02/09/20 24 3:53 PM EST) Yes Rock Gruber, OT Note: To be able to use R UE without pain STG 4-6 visits General On track(02/09/20 24 3:53 PM EST) No Rock Gruber, OT [...] General On track(02/09/20 24 3:53 PM EST) No Rock Gruber, OT [...] spot compression in 6 months Mammo Location: [facility], [address] [place] [address], [address], . -------- FINAL REPORT -------- Dictated By: Kurt Levin Dictated Date: 05/19/2024 10:32 ET Assigned Physician: Kurt Levin Reviewed and Electronically Signed By: Kurt Levin Signed Date: 05/19/2024 11:11 ET Workstation ID: [id number] Transcribed By: Self Edit Transcribed Date: 05/19/2024 [...] depthfocal asymmetries seen mammographically. Patient is a [id number] COMPARISON: Baseline Technique: Bilateral CC and MLO [...] spot compression in 6 months Mammo Location: [facility], [address] [place] [address], [address], . -------- FINAL REPORT -------- Dictated By: Kurt Levin Dictated Date: 05/19/2024 10:32 ET Assigned Physician: Kurt Levin Reviewed and Electronically Signed By: Kurt Levin Signed Date: 05/19/2024 11:11 ET Workstation ID: [id number] Transcribed By: Self Edit Transcribed Date: 05/19/2024 [...] spot compression in 6 months Mammo Location: [facility], [address] [place] [address], [address], . -------- FINAL REPORT -------- Dictated By: Kurt Levin Dictated Date: 05/19/2024 10:32 ET Assigned Physician: Kurt Levin Reviewed and Electronically Signed By: Kurt Levin Signed Date: 05/19/2024 11:11 ET Workstation ID: [id number] Transcribed By: Self Edit Transcribed Date: 05/19/2024 [...] depthfocal asymmetries seen mammographically. Patient is a [id number] COMPARISON: Baseline Technique: Bilateral CC and MLO [...] spot compression in 6 months Mammo Location: [facility], [address] [place] [address], [address], . -------- FINAL REPORT -------- Dictated By: Kutr Levin Dictated Date: 05/19/2024 10:32 ET Assigned Physician: Kurt Levin Reviewed and Electronically Signed By: Kurt Levin Signed Date: 05/19/2024 11:11 ET Workstation ID: [id number] Transcribed By: Self Edit Transcribed Date: 05/19/2024 10:45 ET Arabella DUNHAM IMG BI PROCEDURES Final Resul [...] Signed Date: 05/13/2024 13:25 ET Workstation ID: [id number] Transcribed By: Self Edit Transcribed Date: 05/13/2024 [...] Signed Date: 05/13/2024 13:25 ET Workstation ID: [id number] Transcribed By: Self Edit Transcribed Date: 05/13/2024 13:25 ET Arabella DUNHAM IMG MRI PROCEDURES Final Resu lt * (ABNORMAL) Lipid panel (11/26/2022) LDL/HDL Ratio 3 0 - 4 Triglycerides 93 0 - 150 mg/dL Cholesterol 195 0 - 200 mg/dL HDL 60 >=40 mg/dL LDL Cholesterol 117(A) 0 - 100 mg/dL Blood Venous blood specimen / Unknown [facility] Provider MD LAB BLOOD ORDERABLES Kathryn l Result * HIV Screening (09/14/2019) HIV Screening abstracted [facility] Provider MD HEALTH MAINTENANCE Final Result * Hepatitis C Screening (09/14/2019) Hepatitis C Screening abstracted [facility] Provider MD HEALTH MAINTENANCE Final Result * Pap smear (08/26/2019) 08/26/2019 Narrative HISTORICAL TESTING LAB RESULTING AGENCY - 09/06/2019 12:26 PM EDT [id number] THINPREP PAP, IMAGED: LOW-GRADE SQUAMOUS INTRAEPITHELIAL LESION (LSIL) . SCANT SQUAMOUS CELLULARITY. YESSENIA RAMIREZ , THIEN(ASCP) (CASE SCREENED 08 30 2019) ABNER VERDUGO M.D. , PATHOLOGIST (CASE ELECTRONICALLY SIGNED 09 02 2019) ADEQUACY: SATISFACTORY ENDOCERVICAL/TRANSFORMATION ZONE COMPONENT PRESENT. SOURCE: THINPREP PAP HPV IF ASCUS, CERVICAL, IMAGED CLINICAL INFORMATION: HPV IF DIAGNOSIS OF ASCUS. PAP HX NEG [Z12.4, Z01.419] us Adelita Kraft CNM LAB CYTOLOGY ORDERABLES Final R esult HISTORICAL TESTING LAB RESULTING AGENCY from Last 3 Months or Most Recently Relevant to Health Maintenance [place] [address] [facility] [employer] Care Teams Pharmacy Coordinator Relationship Specialty Start Date End Date Brenda Multani MD [address] [place] [phone] PCP - General Internal Medicine 01/10/24
== END 2024-06-13 14:29 | disposition home or self-care (01) ==
LOC: HO.HOSX 14:28
PROVIDERS: Visit Provider Physician Assistant
DX: M25.521 Pain in right elbow (principal)
CPT/HCPCS: 73080